=== PATIENT | female | born 2000 | race Two or more races ===

== ENCOUNTER 2024-12-12 12:18 | Emergency (ER) | payer OTHER, BC ==
[~2024-12-12] VITALS: Ht 160 cm; Wt 83.9 kg
[2024-12-12] MEDS ORDERED: IBUP-1490 PO (12:58)
[2024-12-12 13:03] VITALS: BP 127/70; TEMP 97.9; O2SAT 99
== END 2024-12-12 13:03 | disposition home or self-care (01) ==
LOC: ER 12:23
DX: S13.4XXA Sprain of ligaments of cervical spine, initial encounter (principal); V49.59XA Passenger injured in collision with other motor vehicles in traffic accident, initial encounter; Y93.89 Activity, other specified; Y92.415 Exit ramp or entrance ramp of street or highway as the place of occurrence of the external cause; Y99.8 Other external cause status